=== PATIENT | female | born 1945 | race Caucasian/White ===

== ENCOUNTER → 2016-10-22 | Outpatient (CLI) | payer MEDICARE ==
--- NOTE | 2016-10-22 13:31 | KCIC ---
Clinical Indication: Postmenopausal screening Technique: Bone Densitometry was performed with dual photon absorption of the lumbar spine and proximal left femur. This is a baseline exam. Findings: Lumbar Spine: Bone density is 0.968 g/cm2 for L1-L4. T-Score is -0.7 and Z-score 1.4. Age-matched percentage is 119 %. Left Femur Total: Bone density is 0.908 g/cm2. T-Score is -0.3 and Z-score 1.2. Age-matched percentage is 120%. Impression: 1. Normal bone mineral density in the lumbar spine. 2. Normal bone mineral density in both hips. Electronically signed by: Adolph Mccullough MD (10/22/2016 1:28 PM) [id number]
== END | disposition home or self-care (01) ==
LOC: KCIC DEXA 12:44
PROVIDERS: ATTEND Family Medicine
DX: M85.88 Other specified disorders of bone density and structure, other site (principal); N95.8 Other specified menopausal and perimenopausal disorders
CPT/HCPCS: 77080

== ENCOUNTER → 2018-08-25 | Outpatient (CLI) | payer SELFPAY ==
--- NOTE | 2018-08-25 17:32 | KCIC ---
Coronary artery calcium score dated August 25, 2018 No comparison available. Clinical Indication: Calcium screening. Hyperlipidemia. Hypertension. Technical factors: High resolution, computed tomography of the heart was performed with ECG gating and suspended respiration. No contrast material was administered. Post processing was performed on the 3-D computer workstation using diastolic phase images to measure the amount of coronary vascular calcium. Scoring was performed utilizing the Agatston Method. Results: Thorax: Small noncalcified lung nodule of the lateral aspect of the right lower lobe measuring 5 mm is seen. There are 2 small noncalcified lung nodules adjacent to one another within the lateral aspect of the left lower lobe each measuring 4 mm. There is a small calcified granuloma within the posterior lateral aspect of the right lower lobe. No significant abnormality is evident. Note that this CT exam is limited to the heart and adjacent structures. Coronary arteries: Left main coronary artery: 0. Left anterior descending coronary artery: 0. Left circumflex coronary artery: 0.6. Right coronary artery: 0. Total coronary artery calcium score: 0.6. Minimal coronary artery calcium is present. There is a low risk of cardiovascular event based on this test. Conclusion: 1. Coronary atherosclerosis is present, limited amount. 2. Low risk of cardiovascular event. 3. Small noncalcified bilateral lower lobe lung nodules. If the patient is at high risk for malignancy, then a follow-up chest CT in 12 months is recommended as per Fleischner guidelines. Additional supporting information concerning the findings and recommendation contained within this report can be found in the consensus statements on coronary vascular calcium published by the [place] [employer] and [place] [employer] and Prevention 5 Conference (Circulation 1996; 94: 9868-1521; J Am Boni Cardiol 2000; 36: 326-340 and Circulation 2000; 101: 111-116). Electronically signed by: Angel Sweeney MD (08/25/2018 5:29 PM) [place] [id number]
== END | disposition home or self-care (01) ==
LOC: KCIC CT 11:06
PROVIDERS: ATTEND Family Medicine
DX: I25.10 Atherosclerotic heart disease of native coronary artery without angina pectoris (principal); R91.8 Other nonspecific abnormal finding of lung field; J84.10 Pulmonary fibrosis, unspecified; E78.5 Hyperlipidemia, unspecified; I10 Essential (primary) hypertension
CPT/HCPCS: 75571

== ENCOUNTER → 2018-09-24 | Outpatient (CLI) | payer MEDICARE ==
--- NOTE | 2018-09-24 16:54 | KCIC ---
BILATERAL SCREENING MAMMOGRAM, 3-D History: Routine screening. Comparison: Bilateral mammogram October 01, 2016. Technique: MLO and CC digital tomosynthesis (3D) images obtained. Radiologist reviewed these images on dedicated workstation. Findings: Breast Tissue Density D :The breasts are extremely dense, which lowers the sensitivity of mammography. A few benign calcifications are redemonstrated. There are no dominant masses, suspicious microcalcifications, or architectural distortion. IMPRESSION: No mammographic evidence of malignancy. Recommend routine screening. BI-RADS category 2: Benign findings. The images were reviewed with computer-aided detection. Patient information is entered into reminder system with a target due date for the next screening mammogram. Mammography is the most sensitive method for finding small breast cancers, but it does not detect them all and is not a substitute for careful clinical examination. A negative mammogram does not negate a clinically suspicious finding and should not result in delay in biopsying a clinically suspicious abnormality. "Our facility is accredited by the [employer] Mammography Program." Electronically signed by: Luis Michael MD (09/24/2018 4:51 PM) [id number]
== END | disposition home or self-care (01) ==
LOC: KCIC MAMMO 12:07
PROVIDERS: ATTEND Family Medicine
DX: Z12.31 Encounter for screening mammogram for malignant neoplasm of breast (principal)
CPT/HCPCS: 77063; 77067